=== PATIENT | male | born 1945 | race Caucasian/White ===

== ENCOUNTER 2019-09-05 07:20 | Day surgery (SDC) | payer MEDICARE, SELFPAY ==
[2019-09-05] MEDS: PROPARACAINE 0.5% OPHTH SOL 2 DROPS EYE-OP (08:19)
[2019-09-05] MEDS: CATARACT EYE COMPOUND (10 DROPS/SYRINGE) 3 DROPS EYE-OP (08:21)
[2019-09-05 08:24] VITALS: BP 150/86; PULSE 72; RESP 16; TEMP 36.3; O2SAT 97
[2019-09-05 08:26] VITALS: BMI 39.4
--- NOTE | 2019-09-05 09:00 | PM.PREOP ---
Pre-operative Note Interval Note History & Physical reviewed/Exam performed by Physician: No Changes to H&P: No
--- NOTE | 2019-09-05 09:00 | PM.OP.1 ---
Operative Date/Time/Diagnoses Pre-op diagnosis: Nuclear Cataract Left eye Post-op diagnosis: same Procedure & Clinicians Same procedure as scheduled: Yes Surgeon: James Singleton Anesthesia Type: MAC +/- and Sedation Operative Notes Procedure in detail: Patient brought to the operating suite. Tetracaine drops placed in the left eye. Patient was prepped and draped in sterile manner. Wire lid speculum was placed in the eye. Betadine drops were placed on the eye. This was irrigated. Lidocaine jelly was placed on the eye. A paracentesis port was created with a side-port blade. 0.1 mL 1% preservative free lidocaine was injected into the anterior chamber. The anterior chamber was deepened with viscoelastic. 2.6 mm keratome was used to create a temporal clear corneal incision. The pupil was floppy and miotic. A 6.25 mm Malugyn ring was used to enlarge the pupil. Cystotome and Utrata forceps were used to create continuous tear capsulorrhexis. Balanced salt solution was used to hydro dissect the nucleus. The phacoemulsification handpiece was inserted and the nucleus was removed using the stop and chop technique. The irrigation aspiration handpiece was inserted and the remaining cortex was removed. Anterior chamber was deepened with viscoelastic. An Smith ZCB00 intraocular lens with a power of 20.5 was injected into the capsular bag. The malugyn ring was removed. Irrigation aspiration handpiece was inserted and the remaining viscoelastic was removed. Incision was hydrated with balanced salt solution and found to be leak free with pressure with Weck-Gela sponges. 0.1 mL Vigamox injected anterior chamber. 0.3 mL Kenalog 10 mg was injected subconjunctivally. Lid speculum was removed. The patient left the operating room in excellent condition. Complications: none Post-operative Condition: stable Disposition: same day surgery
[2019-09-05] MEDS: CHONDROIDTIN/SOD HYALURONATE 1.05 ML SYRINGE INTRAOCULA (09:17)
[2019-09-05] MEDS: LIDOCAINE JELLY 2% 5 ML 1 APPLIC TOP (09:17)
[2019-09-05] MEDS: PHENYLEPHRINE/LIDOCAINE VIAL (OR) 0.2 ML EYE-OP (09:18)
[2019-09-05] MEDS: TRIAMCINOLONE 50 MG/5 ML VIAL INJ (09:18)
[2019-09-05] MEDS: MOXIFLOXACIN INJ 5 MG/ML VIAL EYE-OP (09:18)
[2019-09-05] MEDS: BALANCED SALT IRRIG SOLN NO.2 500 ML, EPINEPHrine 1 MG IRR (09:19)
[2019-09-05] MEDS: TETRACAINE 0.5% OPHTH DROPS 4 ML 2 DROPS EYE-OP (09:19)
[2019-09-05 09:33] VITALS: BP 131/76; PULSE 63; RESP 14; TEMP 36.4; O2SAT 97
== END 2019-09-05 09:45 | disposition home or self-care (01) ==
PROVIDERS: PCP Family Medicine; Referring Provider Ophthalmology; Visit Provider Ophthalmology
PROC: (CPT 66982; principal; 2019-09-05 09:15)
DX: H25.12 Age-related nuclear cataract, left eye (principal); H57.03 Miosis
CPT/HCPCS: 66982; J0171; J2250; J3010; J3301